=== PATIENT | male | born 1985 | race Caucasian/White ===

== ENCOUNTER 2018-09-06 14:26 | Outpatient (CLI) | payer SELFPAY ==
[2018-09-06 15:42] LABS: BASOPHILS % 0.6 (0.0-1.5); EOSINOPHILS % 4.7 % (0.0-6.8)
[2018-09-06 15:43] LABS: NEUTROPHILS # 3.1 # k/uL (1.4-7.7)
[2018-09-06 16:03] LABS: eGFR (Non-African) > 60
--- NOTE | 2018-09-07 03:03 | Diagnostic Imaging Report ---
FABIAN ALCARAZ [facility] [address] [facility] [address] [address] Report Submission Date: Sep 06, 2018 5:28:21 PM [employer] Patient Study Name: MORELIA MYRICK Date: Sep 06, 2018 2:46:29 PM [employer] Modality Type: DX Gender: M Description: ABDOMEN : 87 Institution: [facility] Physician: FABIAN ALCARAZ Examination: Abdomen History: ABD PAIN ON AND OFF SINCE JULY Findings: 3 views obtained of the abdomen. No abnormal dilation of the large or small bowel. Air and stool throughout the large bowel. No suspicious calcification projecting over the renal fossa or the lower pelvic region. Osseous structures are appropriate for age. Impression: Moderate large bowel stool. No obstruction. No suspicious calcifications by plain film sensitivity. Electronically signed on Sep 06, 2018 5:28:21 PM [employer] by: Jose ROBLERO
== END 2018-09-06 14:28 ==
LOC: LAB 14:26
PROVIDERS: ATTEND Nurse Practitioner Family
DX: R10.9 Unspecified abdominal pain (principal)
CPT/HCPCS: 36415; 74019; 80053; 83690; 85025

== ENCOUNTER 2018-09-11 15:26 | Outpatient (CLI) | payer SELFPAY | END 2018-09-11 15:28 | LOC: LAB 15:26 | PROVIDERS: ATTEND Nurse Practitioner Family | DX: Z80.42 Family history of malignant neoplasm of prostate (principal) | CPT/HCPCS: 36415; 84153 ==